=== PATIENT | male | born 1940 | race Caucasian/White ===

== ENCOUNTER 2017-07-14 18:58 | Emergency (ER) | payer MEDICARE, OTHER ==
[~2017-07-14] VITALS: Ht 190.5 cm; Wt 92.9 kg
[2017-07-14 19:07] VITALS: BP 156/66; PULSE 66; RESP 18; TEMP 98.1; O2SAT 98
[2017-07-14] MEDS ORDERED: FERR325C PO (19:26)
[2017-07-14] MEDS ORDERED: TAMS0.4C4 PO (19:26)
[2017-07-14] MEDS ORDERED: HUMALOG SQ (19:26)
[2017-07-14] MEDS ORDERED: LEVEMIR SQ (19:26)
[2017-07-14] MEDS ORDERED: CALC1TAB87 PO (19:26)
[2017-07-14] MEDS ORDERED: ACETAMINOPHEN/HYDROcodone 325 MG/5 MG TAB PO ONE (19:30)
--- NOTE | 2017-07-14 19:34 | PD ---
HPI Chief Complaint: Injury Time Seen by Provider: 19:22 Travel History International Travel<30 days: No Contact w/Intl Traveler<30days: No Traveled to known affect area: No History of Present Illness HPI 76-year-old male presents to emergency department complaining of right ankle pain 5 days after stepping in a hole and twisting it. Has been ambulatory on the affected extremity. Patient is to the lateral aspect. Describes pain as an aching sensation. Rates pain 6/10. Patient has peripheral neuropathy and denies change in paresthesias. Denies loss of sensation, decreased strength to the affected extremity. Has been icing the ankle and taking Advil for symptom management. Pain is aggravated with ambulation, movement, palpation. No known allergies. Has no medical complaints. No other modifying factors or associated signs and symptoms. PFSH Past Medical History Diabetes: Yes Social History Tobacco Use: No Allergies-Medications (Allergen,Severity, Reaction): Coded Allergies: No Known Allergies (Unverified , 07/14/17) Reported Meds & Prescriptions Reported Meds & Active Scripts Active Reported Iron (Ferrous Sulfate) 325 Mg Cap 65 Mg PO DAILY Tamsulosin (Tamsulosin HCl) 0.4 Mg Cap 0.4 Mg PO DAILY Calcium 600 with Vitamin D (Calcium Carbonate-Cholecalciferol) 600-400 mg-Unit Tab 1 Tab PO DAILY Humalog Inj (Insulin Human Lispro) 1,000 Unit/10 Ml Vial 4 Units SQ BID Levemir Inj (Insulin Detemir) 1,000 unit/ 10 ML Vial 18 Units SQ DAILY Do not mix with any other Insulin. Review of Systems Except as stated in HPI: all other systems reviewed are Neg Physical Exam Narrative GENERAL: Well-nourished, well-developed black male patient, in no acute distress SKIN: Warm and dry. HEAD: Atraumatic. Normocephalic. EYES: Pupils equal and round. No scleral icterus. No injection or drainage. ENT: Mucosa pink and moist. Airway patent. NECK: Trachea midline. CARDIOVASCULAR: Regular rate. RESPIRATORY: No accessory muscle use. GASTROINTESTINAL: Flat. MUSCULOSKELETAL: Right ankle with point tenderness to the lateral malleolar zone with palpation; ankle edema noted; without erythema, ecchymosis; no obvious deformity. Right Lower extremity is supple and nontense with 2+ pedal pulse and sensory intact. No obvious deformities. No clubbing. No cyanosis. NEUROLOGICAL: Awake and alert. Oriented 3. No obvious cranial nerve deficits. Motor grossly within normal limits. Normal speech. PSYCHIATRIC: Appropriate mood and affect; insight and judgment normal. Data Data Last Documented VS Vital Signs Date Time Temp Pulse Resp B/P (MAP) Pulse Ox O2 Delivery O2 Flow Rate FiO2 07/14/17 20:39 18 07/14/17 19:07 98.1 66 156/66 (96) 98 Orders Orders Ankle, Complete ([id number]) (07/14/17 19:25) Crutches (07/14/17 19:25) Acetamin-Hydrocod 325-5 Mg ([place] 5-325 (07/14/17 19:30) MDM Medical Decision Making Medical Screen Exam Complete: Yes Emergency Medical Condition: Yes Medical Record Reviewed: Yes Differential Diagnosis Ankle fracture, ankle sprain, ankle injury Narrative Course 76-year-old male with right ankle injury. Lortab administered in the ER. Right ankle x-ray ordered. 2054: Right ankle x-ray concludes: There is a minimally displaced oblique fracture of the distal fibular metaphysis. Elliott splint placed. Crutches provided for support. Lortab prescribed for home. patient to follow up with orthopedics. Instructed patient to follow up with primary care provider. Patient verbalizes understanding and agreement with treatment plan. Patient is medically cleared and stable for discharge. Discussed reasons to return to the emergency department. Patient agrees with treatment plan. The patients vital signs are stable and the patient is stable for outpatient follow-up and treatment. Patient discharged home, stable and in no acute distress. Diagnosis Primary Impression: Fracture of distal end of fibula Qualified Codes: S82.831A - Other fracture of upper and lower end of right fibula, initial encounter for closed fracture Referrals: Amos Potter MD Orthopedist Primary Care Physician Patient Instructions: Ankle Fracture (ED), Crutch Instructions (ED), General Instructions Additional Instructions: Tylenol or ibuprofen as directed and as needed for pain and inflammation Rest, ice, compress, and elevate extremity to decrease pain and inflammation Splint for support; do not remove the splint until he follow-up with orthopedics and aren't cleared Do not bear weight on the splint until orthopedics verifies you can Crutches for support Avoid aggravating activity; increase activity as tolerated Follow-up with primary care provider Follow-up with orthopedics; call within one to 2 days to make an appointment for follow-up Dr. Amos Potter is an orthopedic surgeon with [facility]; his contact information is provided in her discharge instructions; you can call and make an appointment with his office for follow-up with orthopedic surgeon of her choice Return to the emergency department immediately with worsening of symptoms Med/Other Pt SpecificInfo: Prescription(s) given Scripts Walker/Adult/Folding (Walker/Adult/Folding) 1 Mis Mis EA .ROUTE DIRECTED, #1 0 Refills Prov: Kamala Marquez 07/14/17 Hydrocodone-Acetaminophen (Lortab) 5-325 Mg Tab 1 TAB PO Q4H Y for PAIN, #15 TAB 0 Refills Prov: Kamala Marquez 07/14/17 Disposition: 01 DISCHARGE HOME Condition: Stable Kamala Marquez Jul 14, 2017 19:34
[2017-07-14 20:39] VITALS: RESP 18
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
[2017-07-14] MEDS ORDERED: HYDR-3533 PO (20:57)
[2017-07-14] MEDS ORDERED: WALKER/ADULT/FO1 MIS (20:58)
== END 2017-07-14 21:45 | disposition home or self-care (01) ==
LOC: PHEFT 18:58
DX: S82.831A Other fracture of upper and lower end of right fibula, initial encounter for closed fracture (principal); E11.9 Type 2 diabetes mellitus without complications; G62.9 Polyneuropathy, unspecified; Z86.69 Personal history of other diseases of the nervous system and sense organs; X50.1XXA Overexertion from prolonged static or awkward postures, initial encounter
CPT/HCPCS: 27786; 73610; 99283; E0113

== ENCOUNTER 2017-10-09 19:00 | Emergency (ER) | payer MEDICARE, OTHER ==
[~2017-10-09] VITALS: Ht 190.5 cm; Wt 93.1 kg
[~2017-10-09 19:00] MED LIST: CALC1TAB87 PO; FERR325C PO; HUMALOG SQ; HYDR-3533 PO; LEVEMIR SQ; TAMS0.4C4 PO; WALKER/ADULT/FO1 MIS
[2017-10-09 19:20] VITALS: BP 140/65; PULSE 82; RESP 18; TEMP 99.3; O2SAT 97
[2017-10-09] MEDS ORDERED: ATOR10TA15 PO (20:05)
[2017-10-09] MEDS ORDERED: PIOG15TA5 PO (20:05)
[2017-10-09] MEDS ORDERED: FLINT2 CHEW (20:05)
[2017-10-09] MEDS ORDERED: ACETAMINOPHEN/HYDROcodone 325 MG/10 MG TAB PO ONE (20:30)
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
[2017-10-09] MEDS ORDERED: DICL75TA PO (21:14)
[2017-10-09] MEDS ORDERED: HYDR-3516 PO (21:14)
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
== END 2017-10-09 21:55 | disposition home or self-care (01) ==
LOC: PHEFT 19:00
DX: S62.326A Displaced fracture of shaft of fifth metacarpal bone, right hand, initial encounter for closed fracture (principal); Y04.2XXA Assault by strike against or bumped into by another person, initial encounter; E11.9 Type 2 diabetes mellitus without complications; Z79.4 Long term (current) use of insulin
CPT/HCPCS: 29125; 73130

== ENCOUNTER 2017-10-10 10:45 | Emergency (ER) | payer MEDICARE, OTHER ==
[~2017-10-10] VITALS: Ht 190.5 cm; Wt 93.4 kg
[~2017-10-10 10:45] MED LIST changes: +ATOR10TA15 PO; +DICL75TA PO; -FERR325C PO; +FLINT2 CHEW; +HYDR-3516 PO; -HYDR-3533 PO; +PIOG15TA5 PO; -WALKER/ADULT/FO1 MIS
[2017-10-10 10:48] VITALS: BP 122/58; PULSE 77; RESP 16; TEMP 98.1; O2SAT 96
[2017-10-10] MEDS ORDERED: ACETAMINOPHEN/HYDROcodone 325 MG/10 MG TAB PO ONE (11:15)
--- NOTE | 2017-10-10 11:18 | PD ---
HPI Chief Complaint: Wound/Suture/Staple Re-Check Time Seen by Provider: 10:59 Travel History International Travel<30 days: No Contact w/Intl Traveler<30days: No Traveled to known affect area: No History of Present Illness HPI 77-year-old male that presents to the ED for evaluation of splint issue. Patient was seen here by me yesterday for a injury to his right hand. Patient has a fracture to his fifth metacarpal. Patient had a splint placed and patient is concerned because the splint seems to not be working well in his eye more difficulty and pain. Mainly the fifth and fourth fingers appear to be in not the right position. She states that he mentioned this to the tech who put the splint yesterday but unclear as to why they kept it like this. Per patient he is having difficulty for more pain because of the abnormal position of his fingers. He denies any other medical issues. No new injuries. He states that his pain currently 7 out of 10. Denies any numbness, tingling, weakness. Has not seen a hand surgeon. No other medical issues. Mainly here to check for the splint. PFSH Past Medical History Hx Anticoagulant Therapy: No Diabetes: Yes Patient Takes Glucophage: No Diminished Hearing: No Genitourinary: Yes (prostate) Social History Alcohol Use: No Tobacco Use: No Substance Use: No Allergies-Medications (Allergen,Severity, Reaction): Coded Allergies: No Known Allergies (Unverified , 10/10/17) Reported Meds & Prescriptions Reported Meds & Active Scripts Active Diclofenac Sodium DR (Diclofenac Sodium) 75 Mg Tabdr 75 Mg PO BID PRN Hydrocodone-Acetamin 5-325 mg (Hydrocodone/Acetaminophen) 5 Mg-325 Mg Tablet 1 Tab PO Q6HR PRN Reported Pioglitazone (Pioglitazone HCl) 15 Mg Tab 15 Mg PO DAILY Atorvastatin (Atorvastatin Calcium) 10 Mg Tab 5 Mg PO HS Flintstones Complete (Iron/Minerals/Multivitamins) 60 Mg Tab 1 Tab CHEW DAILY Tamsulosin (Tamsulosin HCl) 0.4 Mg Cap 0.4 Mg PO DAILY Calcium 600 with Vitamin D (Calcium Carbonate-Cholecalciferol) 600-400 mg-Unit Tab 1 Tab PO DAILY Humalog Inj (Insulin Human Lispro) 1,000 Unit/10 Ml Vial 4 Units SQ BID Levemir Inj (Insulin Detemir) 1,000 unit/ 10 ML Vial 18 Units SQ DAILY Do not mix with any other Insulin. Review of Systems Except as stated in HPI: all other systems reviewed are Neg Physical Exam Narrative GENERAL: SKIN: Warm and dry. HEAD: Atraumatic. Normocephalic. EYES: Pupils equal and round. No scleral icterus. No injection or drainage. ENT: No nasal bleeding or discharge. Mucous membranes pink and moist. Tongue is midline. No uvula deviation. NECK: Trachea midline. No JVD. CARDIOVASCULAR: Regular rate and rhythm. RESPIRATORY: No accessory muscle use. Clear to auscultation. Breath sounds equal bilaterally. GASTROINTESTINAL: Abdomen soft, non-tender, nondistended. Hepatic and splenic margins not palpable. MUSCULOSKELETAL: Extremities without clubbing, cyanosis, or edema. No obvious deformities. Full range of motion of the upper and lower extremities with exception of the right hand. Patient does have a splint in place but does appear to have his fifth and fourth fingers of the right hand almost crossed. Good capillary refill but do appear to be not in anatomycal position. Good capillary refill. 2+ pulses bilaterally. No other injuries or deformities noted other than bruising noted on the palmar aspect of the hand. NEUROLOGICAL: Awake and alert. No obvious cranial nerve deficits. Motor grossly within normal limits. Five out of 5 muscle strength in the arms and legs. Normal speech. PSYCHIATRIC: Appropriate mood and affect; insight and judgment normal. Data Data Last Documented VS Vital Signs Date Time Temp Pulse Resp B/P (MAP) Pulse Ox O2 Delivery O2 Flow Rate FiO2 10/10/17 10:48 98.1 77 16 122/58 (79) 96 Orders Orders Splint Or Brace Apply/Monitor (10/10/17 10:51) Acetamin-Hydrocod 325-10 Mg ([place] 10-32 (10/10/17 11:15) Ed Discharge Order (10/10/17 11:10) MDM Medical Decision Making Medical Screen Exam Complete: Yes Emergency Medical Condition: Yes Medical Record Reviewed: Yes Differential Diagnosis Fracture versus sprain malfunction versus replacement of splint Narrative Course 77-year-old male that presents to the ED for evaluation of splint issue. Patient was properly examined and was found to have signs and symptoms which appear to be consistent with splint not been properly placed yesterday. facilities operations technician has been made aware of need for re-splinting and proper placement. I was able to evaluate the patient again does appear to be properly placed this time. Patient was given Lortab for pain. Told to follow up with hand surgeon. See ED worsening symptoms. Follow with PCP. Diagnosis Primary Impression: Cast discomfort Referrals: Rakel Lott MD Patient Instructions: General Instructions, Narcotic given in the ED Med/Other Pt SpecificInfo: No Change to Meds Disposition: 01 DISCHARGE HOME Condition: Stable Nathen Potter Oct 10, 2017 11:18
== END 2017-10-10 11:24 | disposition home or self-care (01) ==
LOC: PHEFT 10:45
DX: S62.308D Unspecified fracture of other metacarpal bone, subsequent encounter for fracture with routine healing (principal); X58.XXXD Exposure to other specified factors, subsequent encounter
CPT/HCPCS: 99281